=== PATIENT | male | born 1995 | race Caucasian/White ===

== ENCOUNTER 2020-04-05 20:29 | Emergency (ER) | payer SELFPAY ==
[~2020-04-05] VITALS: Ht 154.9 cm; Wt 56.8 kg
[2020-04-05] MEDS ORDERED: TRAM50TA PO (20:53)
[2020-04-05] MEDS ORDERED: SULF1TAB24 PO (20:53)
--- NOTE | 2020-04-05 20:53 | PHYS DOC ---
General Adult EDM: Chief Complaint: UPPER EXTREMITY PAIN HPI: HPI: Patient is a 25 year old male who presents with complaint of right thumb pain after getting a metal splinter into the thumb 3 days ago. Patient states that he had tried to clean off his thumb as best he could at the time but now he is d eveloping swelling and redness of the thumb and believes it is infected. He rates pain is moderate and states pain is worsened with palpation. He states that he was working on the drive shaft and there were small little metal shavings and he believes that one of them got into his thumb. [] Review of Systems: Review of Systems: Constitutional: Denies fever or chills. [] Respiratory: Denies cough or shortness of breath. [] Cardiovascular: Denies chest pain or edema. [] Musculoskeletal: Positive right thumb swelling and pain. [] Neurologic: Denies headache, focal weakness or sensory changes. [] Heart Score: Risk Factors: Risk Factors: DM, Current or recent (<one month) smoker, HTN, HLP, family history of CAD, obesity. Risk Scores: Score 0 - 3: 2.5% MACE over next 6 weeks - Discharge Home Score 4 - 6: 20.3% MACE over next 6 weeks - Admit for Clinical Observation Score 7 - 10: 72.7% MACE over next 6 weeks - Early Invasive Strategies Physical Exam: PE: Constitutional: Well developed, well nourished, no acute distress, non-toxic appearance. [] Cardiovascular: Regular rate and rhythm [] Lungs & Thorax: Bilateral breath sounds clear to auscultation [] Skin: Warm, dry. Right thumb demonstrates redness and erythema with soft tissue swelling distally. [] Neurologic: Alert and oriented X 3, no focal deficits noted. [] EKG: EKG: [] Radiology/Procedures: Radiology/Procedures: [] Course & Med Decision Making: Course & Med Decision Making Pertinent Labs and Imaging studies reviewed. (See chart for details) [] Dragon Disclaimer: Tayler Disclaimer: This electronic medical record was generated, in whole or in part, using a voice recognition dictation system. Departure Departure Impression: Primary Impression: Wound infection Disposition: 01 HOME, SELF-CARE Condition: STABLE Referrals: NO PCP (PCP) Patient Instructions: Wound Infection Scripts Tramadol Hcl (TRAMADOL HCL) 50 Mg Tablet 50 MG PO Q6HRS PRN for PAIN, #12 TAB Prov: LEROY JACKSON Jr. DO 04/05/20 Sulfamethoxazole/Trimethoprim (BACTRIM DS TABLET) 1 Each Tablet 1 TAB PO BID for 10 Days, #20 TAB 0 Refills Prov: LEROY JACKSON Jr. DO 04/05/20 LEROY JACKSON Jr. DO April 05, 2020 20:53
[2020-04-05 20:55] VITALS: BP 156/100
== END 2020-04-05 21:01 | disposition home or self-care (01) ==
LOC: ER 20:29
DX: L53.9 Erythematous condition, unspecified (principal); L08.89 Other specified local infections of the skin and subcutaneous tissue; M79.644 Pain in right finger(s); R60.0 Localized edema
CPT/HCPCS: 99283